=== PATIENT | male | born 1975 | race Caucasian/White ===

== ENCOUNTER 2017-01-14 18:13 | Emergency (ER) | payer SELFPAY ==
[~2017-01-14] VITALS: Ht 167.6 cm; Wt 63.5 kg
[~2017-01-14 18:13] MED LIST: HYDR-3533 PO
[2017-01-14 18:27] VITALS: BP 113/80; PULSE 77; RESP 16; TEMP 98.6; O2SAT 97
--- NOTE | 2017-01-14 19:25 | PD ---
HPI Chief Complaint: Musculoskeletal Complaint Time Seen by Provider: 19:15 Travel History International Travel<30 days: No Contact w/Intl Traveler<30days: No Traveled to known affect area: No History of Present Illness HPI 41-year-old male presents to the emergency room for evaluation of left forearm and left lower back pain. He denies any trauma. Patient states his pain started about 3 days ago. 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 Pain is worsened with range of motion of the left wrist and back. He has been taking 400 mg ibuprofen without significant relief in symptoms. He has a history of chronic back pain after falling off of scaffolding in 2013. Patient states tramadol works for him and is requesting a prescription at this time. He denies IV drug use, upper or lower extremity paresthesias, loss of bowel or bladder control, or saddle anesthesia. He denies chronic medical conditions or daily medications. PFSH Past Medical History Asthma: No COPD: No Diminished Hearing: No Herniated Disk: Yes Musculoskeletal: Yes (CHRONIC BACK PAIN) Immunizations Current: Yes Sleep Apnea: No Tetanus Vaccination: < 5 Years Influenza Vaccination: Yes ?: Not Past Surgical History Other Surgery: Yes (INGUINAL HERNIA) Social History Alcohol Use: No Tobacco Use: Yes (1 PPD) Substance Use: No Allergies-Medications (Allergen,Severity, Reaction): Coded Allergies: No Known Allergies (Verified , 01/14/17) Reported Meds & Prescriptions Reported Meds & Active Scripts Active Lortab 5 mg/325 mg (Hydrocodone/Acetaminophen 5 mg/325 mg) 1 Tab 1 Tab PO Q6H PRN Review of Systems Except as stated in HPI: all other systems reviewed are Neg Physical Exam Narrative GENERAL: Well-nourished, well-developed male in no acute distress. Afebrile. Ambulatory. SKIN: Focused skin assessment warm/dry. No erythema or ecchymosis. HEAD: Normocephalic. EYES: No scleral icterus. No injection or drainage. NECK: Supple, trachea midline. No JVD or lymphadenopathy. CARDIOVASCULAR: Regular rate and rhythm without murmurs, gallops, or rubs. RESPIRATORY: Breath sounds equal bilaterally. No accessory muscle use. EXTREMITY: Left wrist mildly tender to palpation over the distal radius. Full range of motion in all joints. No noticeable edema. 2+ radial pulse. Positive Chandrika's test. BACK: No CVA tenderness. No rash. No point tenderness on palpation of the spine. Strength 5/5 and equal in lower extremities. 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 Pain started 3 days ago. Patient has no red flag symptoms requiring imaging of his back at this time. No focal neurologic deficits. He is ambulatory with 5/5 strength. No midline tenderness of the spine. No radiation. Left wrist is tender to palpation over the distal radius. Positive Chandrika's test. Neurovascularly intact with 2+ radial pulse. Given recent history of heavy lifting, this is likely acute exacerbation of chronic back pain and deQuervain's tenosynovitis. He was placed in a velcro wrist splint. Patient was informed we do not prescribe narcotic pain medication for chronic back pain. Patient will be discharged with prescription for ibuprofen and Robaxin. Patient told to follow up with a primary care physician or return to the emergency room for worsening symptoms. He understands and agrees to this plan. Diagnosis Primary Impression: Back strain Qualified Code: S39.012A - Back strain, initial encounter Additional Impression: De Quervain's disease (tenosynovitis) Ruled Out: De Quervain thyroiditis Referrals: Primary Care Physician Patient Instructions: General Instructions, Low Back Strain (ED), Tenosynovitis (ED) Additional Instructions: Rest and drink plenty of fluids. Take Robaxin as directed, as needed for pain. Take ibuprofen with food as directed, as needed for pain. Apply ice to the affected area for 20 minutes at a time, as needed for pain and swelling. Follow-up with a primary care physician. Return to the emergency room for worsening symptoms. Med/Other Pt SpecificInfo: Prescription(s) given Disposition: 01 DISCHARGE HOME Condition: Stable Елена,Angie PA January 14, 2017 19:25
[2017-01-14] MEDS ORDERED: IBUP-232 PO (19:36)
[2017-01-14] MEDS ORDERED: ROBA750T PO (19:36)
== END 2017-01-14 19:51 | disposition home or self-care (01) ==
LOC: PHEFT 18:13
DX: S39.012A Strain of muscle, fascia and tendon of lower back, initial encounter (principal); F17.200 Nicotine dependence, unspecified, uncomplicated; X50.3XXA Overexertion from repetitive movements, initial encounter
CPT/HCPCS: 99283; L3908

== ENCOUNTER 2017-01-16 17:56 | Emergency (ER) | payer SELFPAY ==
[~2017-01-16] VITALS: Ht 167.6 cm; Wt 65.5 kg
[~2017-01-16 17:56] MED LIST changes: +IBUP-232 PO; +ROBA750T PO
[2017-01-16 17:59] VITALS: BP 141/90; PULSE 84; RESP 16; TEMP 99.1; O2SAT 97
[2017-01-16] MEDS ORDERED: GABA800T PO (18:06)
--- NOTE | 2017-01-16 18:10 | PD ---
HPI Chief Complaint: Edema Time Seen by Provider: 18:03 Travel History International Travel<30 days: No Contact w/Intl Traveler<30days: No Traveled to known affect area: No History of Present Illness HPI 41-year-old left-handed Brennon presents to the emergency department with ongoing left dorsal wrist pain. Patient was seen here several days ago and given ibuprofen and Robaxin. Velcro wrist splint which is been wearing intermittently. Patient continuing to work which is aggravated his symptoms. He denies fever, chills, numbness, tingling. Pain is now 8 out of 10. He feels his left hand is somewhat swollen. He has no known drug allergies. PFSH Past Medical History Hx Anticoagulant Therapy: No Asthma: No Cardiovascular Problems: Yes (HTN) COPD: No Diabetes: No Diminished Hearing: No Herniated Disk: Yes Musculoskeletal: Yes (CHRONIC BACK PAIN) Immunizations Current: Yes Sleep Apnea: No Past Surgical History Other Surgery: Yes (INGUINAL HERNIA) Social History Alcohol Use: No Tobacco Use: Yes (1 PPD) Substance Use: No Allergies-Medications (Allergen,Severity, Reaction): Coded Allergies: No Known Allergies (Verified , 01/16/17) Reported Meds & Prescriptions Reported Meds & Active Scripts Active Reported Gabapentin 800 Mg Tab 800 Mg PO TID Review of Systems Except as stated in HPI: all other systems reviewed are Neg General / Constitutional: No: Fever Eyes: No: Visual changes HENT: No: Headaches Cardiovascular: No: Chest Pain or Discomfort Respiratory: No: Shortness of Breath Gastrointestinal: No: Abdominal Pain Genitourinary: No: Dysuria Musculoskeletal: No: Pain Skin: No Rash Neurologic: No: Weakness Psychiatric: No: Depression Endocrine: No: Polydipsia Hematologic/Lymphatic: No: Easy Bruising Physical Exam Narrative GENERAL: Patient appears no acute distress. SKIN: Warm and dry. Normal color. Normal turgor. HEAD: Atraumatic. Normocephalic. EYES: Pupils equal and round. No scleral icterus. No injection or drainage. ENT: No nasal bleeding or discharge. Mucous membranes pink and moist. Pharynx is clear. NECK: Trachea midline. Supple nontender. No radicular symptoms. CARDIOVASCULAR: Regular rate and rhythm. RESPIRATORY: No accessory muscle use. Clear to auscultation. Breath sounds equal bilaterally. MUSCULOSKELETAL: Extremities without clubbing, cyanosis, or edema. No obvious deformities. Left arm appears normal. Patient is tenderness along the extensor tendon left wrist consistent with tenosynovitis. 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 NEUROLOGICAL: Awake and alert. No obvious cranial nerve deficits. Motor grossly within normal limits. Five out of 5 muscle strength in the arms and legs. Normal speech. PSYCHIATRIC: Appropriate mood and affect; insight and judgment normal. Data Data Last Documented VS Vital Signs Date Time Temp Pulse Resp B/P Pulse Ox O2 Delivery O2 Flow Rate FiO2 01/16/17 17:59 99.1 84 16 141/90 97 MDM Medical Decision Making Medical Screen Exam Complete: Yes Emergency Medical Condition: Yes Medical Record Reviewed: Yes Differential Diagnosis Repetitive motion injury. Tendinitis. Tenosynovitis. Narrative Course Patient is medically stable at time of exam. Patient is given prednisone 60 mg by mouth now. Patient is continue the wrist splint as discussed. Patient is to do hot soaks followed by ice several times daily as discussed. Patient will be continued on prednisone 20 mg twice a day 1 week. Patient is also given tramadol 50 mg 1 tab every 6 hours when necessary pain # 20. Patient is given information regarding tenosynovitis and warned that if he continues to the same workload it will continue to worsen. Patient follow-up with a local primary care physician or return to the emergency department as needed. Diagnosis Primary Impression: Extensor tenosynovitis of left wrist Referrals: [facility] Primary Care Physician Patient Instructions: General Instructions, Upper Extremity Tenosynovitis (DC) Additional Instructions: Patient is given prednisone 60 mg by mouth now. Patient is continue the wrist splint as discussed. Patient is to do hot soaks followed by ice several times daily as discussed. Patient will be continued on prednisone 20 mg twice a day 1 week. Patient is also given tramadol 50 mg 1 tab every 6 hours when necessary pain # 20. Patient is given information regarding tenosynovitis and warned that if he continues to the same workload it will continue to worsen. Patient follow-up with a local primary care physician or return to the emergency department as needed. Med/Other Pt SpecificInfo: Prescription(s) given Disposition: 01 DISCHARGE HOME Condition: Stable Perez Cao January 16, 2017 18:10
[2017-01-16] MEDS ORDERED: predniSONE 20 MG TAB PO ONE (18:15)
[2017-01-16] MEDS ORDERED: PRED20 PO (18:16)
[2017-01-16] MEDS ORDERED: TRAM50TA PO (18:16)
== END 2017-01-16 18:20 | disposition home or self-care (01) ==
LOC: PHEFT 17:56
DX: M65.88 Other synovitis and tenosynovitis, other site (principal); I10 Essential (primary) hypertension; F17.200 Nicotine dependence, unspecified, uncomplicated; Z86.79 Personal history of other diseases of the circulatory system; Z87.39 Personal history of other diseases of the musculoskeletal system and connective tissue
CPT/HCPCS: 99283; J7512

== ENCOUNTER 2017-02-20 20:33 | Emergency (ER) | payer SELFPAY ==
[~2017-02-20] VITALS: Ht 170.2 cm; Wt 76.0 kg
[~2017-02-20 20:33] MED LIST changes: +GABA800T PO; -HYDR-3533 PO; -IBUP-232 PO; +PRED20 PO; -ROBA750T PO; +TRAM50TA PO
[2017-02-20 20:36] VITALS: BP 158/95; PULSE 102; RESP 16; TEMP 99.5; O2SAT 97
[2017-02-20] MEDS ORDERED: SERO400T PO (21:41)
[2017-02-20] MEDS ORDERED: PRIL20TA2 PO ×2 (21:41→21:57)
[2017-02-20] MEDS ORDERED: PROZ20CA11 PO ×2 (21:41→21:57)
[2017-02-20] MEDS ORDERED: GABA800T PO (21:57)
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
[2017-02-20 22:11] VITALS: BP 136/91; PULSE 88; RESP 18; O2SAT 97
[2017-02-21] MEDS ORDERED: BACT800T5 PO (14:12)
== END 2017-02-21 00:48 | disposition home or self-care (01) ==
LOC: NEPD 20:33
DX: F10.10 Alcohol abuse, uncomplicated (principal); F19.10 Other psychoactive substance abuse, uncomplicated; M54.5 Low back pain; G89.29 Other chronic pain; I10 Essential (primary) hypertension; F17.200 Nicotine dependence, unspecified, uncomplicated; Z87.39 Personal history of other diseases of the musculoskeletal system and connective tissue; Z87.19 Personal history of other diseases of the digestive system; Z86.59 Personal history of other mental and behavioral disorders
CPT/HCPCS: 99284

== ENCOUNTER 2017-02-21 13:38 | Emergency (ER) | payer SELFPAY ==
[~2017-02-21] VITALS: Ht 170.2 cm; Wt 74.0 kg
[~2017-02-21 13:38] MED LIST changes: -PRED20 PO; +PRIL20TA2 PO; +PROZ20CA11 PO; +SERO400T PO; -TRAM50TA PO
[2017-02-21 13:40] VITALS: BP 138/81; PULSE 74; RESP 18; TEMP 98.4; O2SAT 96
[2017-02-21] MEDS ORDERED: BACT800T5 PO (14:12)
--- NOTE | 2017-02-21 14:13 | PD ---
HPI . Skin lesions Chief Complaint: Skin Problem Time Seen by Provider: 14:04 Travel History International Travel<30 days: No Contact w/Intl Traveler<30days: No Traveled to known affect area: No History of Present Illness HPI Patient presents with the chief complaint of scattered painful skin lesions. The one on his right index finger is the worst. He reports no aggravating or relieving factors. He describes the pain as throbbing and states that it is severe. PFSH Past Medical History Hx Anticoagulant Therapy: No Asthma: No Anxiety: Yes Cardiovascular Problems: Yes (HTN) COPD: No Diabetes: No Diminished Hearing: No Herniated Disk: Yes Hypertension: Yes Musculoskeletal: Yes (CHRONIC BACK PAIN) Immunizations Current: Yes Sleep Apnea: No Tetanus Vaccination: < 5 Years Past Surgical History Abdominal Surgery: Yes (Hernia ) Other Surgery: Yes (INGUINAL HERNIA) Social History Alcohol Use: Yes (a lot) Tobacco Use: Yes (1 PPD) Substance Use: Yes (cocaine) Allergies-Medications (Allergen,Severity, Reaction): Coded Allergies: No Known Allergies (Verified , 01/16/17) Reported Meds & Prescriptions Reported Meds & Active Scripts Active Prozac (Fluoxetine HCl) 20 Mg Cap 20 Mg PO DAILY Gabapentin 800 Mg Tab 800 Mg PO TID Reported Prilosec (Omeprazole Magnesium) 20 Mg Tab 40 Mg PO DAILY Seroquel (Quetiapine Fumarate) 400 Mg Tab 400 Mg PO DAILY Review of Systems Except as stated in HPI: all other systems reviewed are Neg General / Constitutional: No: Fever, Chills Skin: Positive Lesions Psychiatric: Positive: Substance Abuse Physical Exam Narrative GENERAL: Awake and alert and in no acute distress. He smells of alcohol. SKIN: Warm and dry. Numerous superficial abrasions. He has a couple of lesions on his lower extremities which are raised and erythematous but which have no fluctuance. He has a lesion on his right index finger which is fluctuant. HEAD: Atraumatic. Normocephalic. EYES: Pupils equal and round. NECK: Trachea midline. CARDIOVASCULAR: Regular rate and rhythm. RESPIRATORY: No accessory muscle use. MUSCULOSKELETAL: No obvious deformities. No edema. NEUROLOGICAL: Awake and alert. No obvious cranial nerve deficits. Motor grossly within normal limits. Normal speech. PSYCHIATRIC: Appropriate mood and affect; insight and judgment normal. Data Data Last Documented VS Vital Signs Date Time Temp Pulse Resp B/P Pulse Ox O2 Delivery O2 Flow Rate FiO2 02/21/17 13:40 98.4 74 18 138/81 96 MDM Medical Decision Making Medical Screen Exam Complete: Yes Emergency Medical Condition: Yes Medical Record Reviewed: Yes (patient was seen here during the night for alcohol intoxication.) Differential Diagnosis My differential diagnosis includes but is not limited to localized wound infection, cellulitis, abscess Narrative Course Patient presents complaining with several skin lesions. He appears to have a couple of early abscesses on his lower extremities. He has an abscess which is fluctuant on his right hand. The one on his hand will be drained. We placed on Bactrim. He is to follow-up with his PMD in 2 days for recheck. Diagnosis Primary Impression: Abscess Additional Impression: Cellulitis Qualified Code: L03.119 - Cellulitis of lower extremity, unspecified laterality Patient Instructions: Abscess Incision and Drainage (DC), Cellulitis (DC), General Instructions Med/Other Pt SpecificInfo: Prescription(s) given Scripts Sulfamethoxazole-Trimethoprim (Bactrim DS)800-160 Mg Tab1 Tab PO BID #20 TAB Ref 0 Prov:Nancy Ceballos MD 02/21/17 Disposition: 01 DISCHARGE HOME Condition: Stable Nancy Ceballos MD Feb 21, 2017 14:13
--- NOTE | 2017-02-21 14:22 | PD ---
Physical Exam Time Seen by Provider: 14:20 Narrative I was asked to drain the abscess to the right index finger. Data Data Last Documented VS Vital Signs Date Time Temp Pulse Resp B/P Pulse Ox O2 Delivery O2 Flow Rate FiO2 02/21/17 13:40 98.4 74 18 138/81 96 MDM Supervised Visit with JAKOB: No Narrative Course I was asked to drain the abscess to the right index finger. See my procedure note. Procedures Procedure Narrative INCISION AND DRAINAGE OF ABSCESS: The area was prepped and was sterilely draped. Ethyl chloride was used to anesthetize the area. The area was properly anesthetized. A number 11 scalpel was used to make a less than 0.5-cm incision across the area of the abscess. Cultures were obtained. The abscess was drained an irrigated with normal saline. Sterile dressing applied. Diagnosis Primary Impression: Abscess Additional Impression: Cellulitis Qualified Code: L03.119 - Cellulitis of lower extremity, unspecified laterality Patient Instructions: General Instructions, Cellulitis (DC), Abscess Incision and Drainage (DC) Departure Forms: Tests/Procedures Scripts Sulfamethoxazole-Trimethoprim (Bactrim DS)800-160 Mg Tab1 Tab PO BID #20 TAB Ref 0 Prov:Nancy Ceballos MD 02/21/17 Disposition: 01 DISCHARGE HOME Condition: Stable Anni Maldonado Feb 21, 2017 14:22
== END 2017-02-21 14:35 | disposition home or self-care (01) ==
LOC: NEPD 13:38
DX: L02.511 Cutaneous abscess of right hand (principal); F41.9 Anxiety disorder, unspecified; I10 Essential (primary) hypertension; F17.200 Nicotine dependence, unspecified, uncomplicated; Z79.899 Other long term (current) drug therapy
CPT/HCPCS: 26010

== ENCOUNTER 2017-02-21 17:30 | Emergency (ER) | payer SELFPAY ==
[~2017-02-21] VITALS: Ht 170.2 cm; Wt 74.0 kg
[~2017-02-21 17:30] MED LIST changes: +BACT800T5 PO
[2017-02-21 18:10] VITALS: BP 138/78; PULSE 68; RESP 18; TEMP 98.4; O2SAT 97
[2017-02-21 18:14] VITALS: BP 142/85; PULSE 96; RESP 18; TEMP 98.5; O2SAT 97
[2017-02-21] MEDS ORDERED: LORazepam 2 MG/ML VIAL IM ONE (18:30)
--- NOTE | 2017-02-21 18:42 | PD ---
HPI Chief Complaint: Skin Problem Time Seen by Provider: 18:20 Travel History International Travel<30 days: No Contact w/Intl Traveler<30days: No Traveled to known affect area: No History of Present Illness HPI 42-year-old male presents to the emergency Department with complaint of pain to his right index finger and bilateral knees from abscesses. He was seen here at [place] this morning and discharged with Bactrim after the right index abscess was incised and drained. He is demanding the abscesses to his knees be drained and he wants a splinter removed from his left hand. There is no erythema, edema , drainage from the site the patient states he has a splinter to his left hand. He is homeless and says he has not filled his Bactrim because he cannot afford it. Upon discussion with the patient and treatment plan he says that if he is discharged home he will throw himself in front of a semi-and kill himself. PFSH Past Medical History Hx Anticoagulant Therapy: No Asthma: No Anxiety: Yes Cardiovascular Problems: Yes (HTN) COPD: No Diabetes: No Diminished Hearing: No Herniated Disk: Yes Hypertension: Yes Musculoskeletal: Yes (CHRONIC BACK PAIN) Immunizations Current: Yes Sleep Apnea: No Past Surgical History Abdominal Surgery: Yes (Hernia ) Other Surgery: Yes (INGUINAL HERNIA) Social History Alcohol Use: Yes (a lot) Tobacco Use: Yes (1 PPD) Substance Use: Yes (cocaine) Allergies-Medications (Allergen,Severity, Reaction): Coded Allergies: No Known Allergies (Verified , 01/16/17) Reported Meds & Prescriptions Reported Meds & Active Scripts Active Bactrim DS (Sulfamethoxazole-Trimethoprim) 800-160 Mg Tab 1 Tab PO BID Prozac (Fluoxetine HCl) 20 Mg Cap 20 Mg PO DAILY Gabapentin 800 Mg Tab 800 Mg PO TID Reported Prilosec (Omeprazole Magnesium) 20 Mg Tab 40 Mg PO DAILY Seroquel (Quetiapine Fumarate) 400 Mg Tab 400 Mg PO DAILY Review of Systems Except as stated in HPI: all other systems reviewed are Neg Physical Exam Narrative GENERAL: Well-nourished, well-developed male patient, in no acute distress; afebrile, nontoxic-appearing; disheveled SKIN: There is a draining abscess to the right index finger; dressing applied. There are nonfluctuant, abscesses to bilateral knee areas are without erythema, edema, drainage; the abscess on the right is scabbed and the abscess to the left has a skin like film covering it. HEAD: Atraumatic. Normocephalic. EYES: Pupils equal and round. No scleral icterus. No injection or drainage. ENT: Mucosa pink and moist. Airway patent. NECK: Trachea midline. CARDIOVASCULAR: Regular rate. RESPIRATORY: No accessory muscle use. GASTROINTESTINAL: Flat. MUSCULOSKELETAL: No obvious deformities. No clubbing. No cyanosis. No edema. NEUROLOGICAL: Awake and alert. Oriented 3. No obvious cranial nerve deficits. Motor grossly within normal limits. Normal speech. PSYCHIATRIC: Appropriate mood and affect; insight and judgment normal. Data Data Last Documented VS Vital Signs Date Time Temp Pulse Resp B/P Pulse Ox O2 Delivery O2 Flow Rate FiO2 02/21/17 18:14 98.5 96 18 142/85 97 Orders Lorazepam Inj (Ativan Inj) (02/21/17 18:30) Complete Blood Count With Diff (02/21/17 18:23) Basic Metabolic Panel (Bmp) (02/21/17 18:23) Alcohol (Ethanol) (02/21/17 18:23) Drug Screen, Random Urine (02/21/17 18:25) Psych Screen (02/21/17 18:25) MDM Medical Decision Making Medical Screen Exam Complete: Yes Emergency Medical Condition: Yes Medical Record Reviewed: Yes Differential Diagnosis Medical clearance, malingering, suicidal threat, abscesses Narrative Course This is a 42-year-old male who was seen this morning and had an incision and drainage of an abscess to his right index finger, performed by me. He was seen by Dr. tate and sent home with a prescription for Bactrim which she has not filled. Upon discussion of the patient's discharge upon discussion of further treatment and discharge of the patient threatened he would throw himself in front of a semi if he is discharged. Dr. Gonzalez, my attending physician, evaluated the patient and ordered a voluntary psych screen. Labs ordered and psych screen ordered. If the laboratory results are unremarkable, the patient will be medically cleared for psychiatric evaluation and disposition. Diagnosis Primary Impression: Abscess Additional Impression: Medical clearance for psychiatric admission Condition: Stable Anni Maldonado Feb 21, 2017 18:42
[2017-02-21 19:47] LABS: AUTOMATED NEUTROPHIL # 10.7 TH/MM3 (1.8-7.7); BASOPHIL # 0.1 TH/MM3 (0-0.2); BASOPHIL % 0.5 % (0.0-2.0); EOSINOPHIL % 0.1 % (0.0-4.0); HEMATOCRIT 43.2 % (39.0-51.0); HEMO FLAGS DIFF FINAL; LYMPH % 19.3 % (9.0-44.0); LYMPHOCYTE # 2.8 TH/MM3 (1.0-4.8); MEAN CELL VOLUME 83.7 FL (80.0-100.0); MEAN CORPUSCULAR HEMOGLOBIN 28.5 PG (27.0-34.0); MONO % 6.1 % (0.0-8.0); PLATELET COUNT 255 TH/MM3 (150-450); RED BLOOD COUNT 5.16 MIL/MM3 (4.50-5.90); RED CELL DISTRIBUTION WIDTH 16.5 % (11.6-17.2); WHITE BLOOD COUNT 14.4 TH/MM3 (4.0-11.0)
[2017-02-21 20:09] LABS: BICARBONATE 23.7 MEQ/L (21.0-32.0); POTASSIUM 3.7 MEQ/L (3.5-5.1)
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
[2017-02-21 23:04] VITALS: BP 128/81; PULSE 107; RESP 18; O2SAT 95
[2017-02-22 00:10] LABS: AMPHETAMINE, URINE NEG (NEG); BARBITURATES, URINE NEG (NEG); COCAINE, URINE POS (NEG)
[2017-02-22 02:15] VITALS: BP 124/65; PULSE 92; RESP 18; TEMP 102; O2SAT 95
[2017-02-22] MEDS ORDERED: IBUPROFEN 600 MG TAB PO ONE (02:15)
[2017-02-22] MEDS ORDERED: DOXYCYCLINE HYCLATE 100 MG CAP PO ONE (02:15)
[2017-02-22] MEDS ORDERED: SULFAMETHOXAZOLE-TRIMETHOPRIM DS 800-160 MG TAB PO ONE (02:15)
[2017-02-22 06:00] VITALS: BP 109/72; PULSE 74; RESP 16; TEMP 98.4; O2SAT 99
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
[2017-02-22 11:42] VITALS: BP 119/78; PULSE 70; RESP 18; O2SAT 98
[2017-02-22 14:26] VITALS: BP 119/78; PULSE 70; RESP 18; O2SAT 98
== END 2017-02-22 14:28 | disposition home or self-care (01) ==
LOC: NEPD 17:30 → NEPJ 02-22 14:28
DX: L02.511 Cutaneous abscess of right hand (principal); F19.10 Other psychoactive substance abuse, uncomplicated; F60.2 Antisocial personality disorder; I10 Essential (primary) hypertension; F41.9 Anxiety disorder, unspecified; F17.200 Nicotine dependence, unspecified, uncomplicated; Z79.899 Other long term (current) drug therapy; Z59.0 Homelessness
CPT/HCPCS: 80048; 80307; 85025; 87040; 96372; 99284; J2060